=== PATIENT | female | born 1995 | race Two or more races ===

== ENCOUNTER 2021-04-08 16:26 | Emergency (ER) | payer MEDICAID ==
[~2021-04-08] VITALS: Ht 175.3 cm; Wt 90.0 kg
[2021-04-08] MEDS ORDERED: acetaminophen 325mg tablet PO ONE (17:15)
[2021-04-08] MEDS ORDERED: ondansetron 4mg rapidly disintigrating tab PO STA (18:00)
[2021-04-08] MEDS ORDERED: normal saline 1000ml 1,000 ML IV ONE (19:40)
[2021-04-08 20:37] VITALS: BP 122/96
== END 2021-04-08 20:40 | disposition home or self-care (01) ==
LOC: ER 16:27
DX: U07.1 COVID-19 (principal)
CPT/HCPCS: 36415; 99283; J7030; U0003; U0005